=== PATIENT | female | born 1980 | race African-American/Black ===

== ENCOUNTER 2016-12-26 13:31 | Emergency (ER) | payer MEDICAID ==
[~2016-12-26] VITALS: Ht 157.5 cm; Wt 59.0 kg
[2016-12-26] MEDS ORDERED: KETOROLAC 15MG/ML VIAL IV ONE (14:30)
[2016-12-26] MEDS ORDERED: SODIUM CHLORIDE 0.9% 1,000 ML IV ONE (14:30)
[2016-12-26] MEDS ORDERED: ONDANSETRON HCL 4MG/2ML VIAL IV ONE (14:30)
[2016-12-26 15:14] LABS: HEMATOCRIT. 37.2 % (36.0-48.0); HEMOGLOBIN. 12.1 g/dL (12.0-16.0); MEAN CORPUSCULAR HEMOGLOBIN 29.6 pg (28.0-32.0); MEAN CORPUSCULAR VOLUME 90.8 fL (81.0-99.0); MEAN PLATELET VOLUME 9.2 fl (7.4-10.4); PLATELET 265 x1000/uL (130-400); RED BLOOD CELL COUNT 4.09 mill/uL (4.2-5.4); RED CELL DISTRIBUTION WIDTH 13.7 % (11.6-14.6)
[2016-12-26 15:17] LABS: INR 1.1; PROTHROMBIN TIME 11.6 sec
[2016-12-26 15:18] LABS: CLARITY URINE CLEAR (CLEAR); COLOR URINE YELLOW (YELLOW); GLUCOSE URINE NEGATIVE (NEGATIVE); KETONES URINE 3+ (NEGATIVE); LEUKOCYTE ESTERASE URINE NEGATIVE (NEGATIVE); NITRITE URINE NEGATIVE (NEGATIVE); OCCULT BLOOD URINE NEGATIVE (NEGATIVE); PROTEIN URINE 1+ (NEGATIVE); SPECIFIC GRAVITY URINE 1.033 (1.005-1.030); UROBILINOGEN URINE 0.2 E.U./dL (0.2-1.0)
[2016-12-26 15:28] LABS: CARBON DIOXIDE 24 mEq/L (21-32); CHLORIDE 110 mEq/L (98-107); TROPONIN I < 0.02 ng/mL (0.00-0.04)
[2016-12-26 15:32] LABS: *AMPHETAMINES SCREEN URINE NEGATIVE (NEGATIVE); *BARBITURATES SCREEN URINE NEGATIVE (NEGATIVE); *BENZODIAZEPINES SCREEN URINE NEGATIVE (NEGATIVE); *COCAINE SCREEN URINE NEGATIVE (NEGATIVE); METHADONE URINE SCREEN NEGATIVE (NEGATIVE); OPIATES URINE SCREEN NEGATIVE (NEGATIVE); PHENCYCLIDINE URINE SCREEN NEGATIVE (NEGATIVE)
[2016-12-26 15:33] LABS: CANNABINOID URINE SCREEN PRESUMTIVE POSITIVE (NEGATIVE)
[2016-12-26 15:44] LABS: PLATELET ESTIMATE NORMAL
[2016-12-26 16:45] VITALS: BP 11/65
== END 2016-12-26 17:02 | disposition home or self-care (01) ==
LOC: ER 15:01 → CANBEDREQ 18:36
DX: T40.7X5A Adverse effect of cannabis (derivatives), initial encounter (principal); E44.1 Mild protein-calorie malnutrition; E86.0 Dehydration; F12.90 Cannabis use, unspecified, uncomplicated; R82.4 Acetonuria; R80.9 Proteinuria, unspecified; Y92.89 Other specified places as the place of occurrence of the external cause
CPT/HCPCS: 36415; 71010; 80053; 80305; 81001; 81025; 83036; 83690; 83880; 84484; 85025; 85610; 85651; 93005; 96361; 96374; 96375; 99285; J1885; J2405; J7030; Z7610

== ENCOUNTER 2021-03-20 00:55 | Emergency (ER) | payer MEDICAID ==
[~2021-03-20] VITALS: Ht 157.5 cm; Wt 71.0 kg
[2021-03-20] MEDS ORDERED: SODIUM CHLORIDE 0.9% 1,000 ML IV ONE (01:30)
[2021-03-20] MEDS ORDERED: TETANUS, DIPHTHERIA, PERTUSSIS VAC/PF 0.5ML (>10YR OLD) IM ONE (01:30)
[2021-03-20] MEDS ORDERED: MORPHINE SULFATE 4 MG/ML CPJ (NOT FOR IM USE) IV STA (01:30)
[2021-03-20] MEDS ORDERED: MORPHINE SULFATE 2 MG/ML CPJ (NOT FOR IM USE) IV SCH (01:45)
[2021-03-20] MEDS ORDERED: HYDR-4001 MT (03:10)
[2021-03-20] MEDS ORDERED: HYDROCODONE/ACETAMINOPHEN 5/325MG TABLET PO ONE (03:15)
[2021-03-20 05:00] VITALS: BP 112/61
== END 2021-03-20 05:20 | disposition home or self-care (01) ==
LOC: ER 00:55
DX: T24.102A Burn of first degree of unspecified site of left lower limb, except ankle and foot, initial encounter (principal); K21.9 Gastro-esophageal reflux disease without esophagitis; X12.XXXA Contact with other hot fluids, initial encounter; Y93.9 Activity, unspecified; Y92.9 Unspecified place or not applicable; Z87.440 Personal history of urinary (tract) infections
CPT/HCPCS: 90471; 90715; 96361; 96374; 99283; J2270; J7030